=== PATIENT | male | born 1980 | race Caucasian/White ===

== ENCOUNTER 2016-09-09 17:48 | Emergency (ER) | payer SELFPAY ==
[2016-09-09 18:27] LABS: ABSOLUTE NEUTROPHIL COUNT 4.1 K/mm3 (1.8-7.7); BASO % 0.4 % (0.2-1.0); EOS # 0.2 (0.0-0.5); EOS % 2.2 % (0.9-2.9); HEMATOCRIT 38.1 % (32.0-52.0); HEMOGLOBIN 13.3 gm/l (14.0-18.0); IMM NEUT% 0.3 % (0-1); LYMPH # 2.5 (1.0-4.8); LYMPH % 35.1 % (15-45); MEAN CELL VOLUME 85.4 fl (80.0-94.0); MEAN CORPUSCULAR HEMOGLOBIN 29.8 pg (27.0-31.0); MEAN CORPUSCULAR HGB CONC 34.9 g/dl (33.0-37.0); MEAN PLATELET VOLUME 8.9 fl (7.4-10.4); MONO # 0.3 (0.0-0.8); MONO % 4.6 % (4-12); NEUT % 57.4 % (43-75); PLATELET COUNT 347 K/mm3 (130-400); RED CELL DISTRIBUTION WIDTH 11.2 % (11.5-14.5)
[2016-09-09] MEDS ORDERED: ONDANSETRON 4 MG/2ML 2 ML VIAL ONE (18:37)
[2016-09-09 18:59] LABS: SPECIFIC GRAVITY 1.025 (1.001-1.030); URINE APPEARANCE CLEAR; URINE BILIRUBIN NEGATIVE (NEGATIVE); URINE BLOOD 1+ (NEGATIVE); URINE COLOR YELLOW; URINE GLUCOSE (UA) NEGATIVE (NEGATIVE); URINE LEUKOCYTE ESTERASE NEGATIVE (NEGATIVE); URINE NITRITE NEGATIVE (NEGATIVE); URINE PROTEIN NEGATIVE (NEGATIVE); URINE UROBILINOGEN NORMAL (0-1 mg/dl)
[2016-09-09 19:04] LABS: URINE WBC 0-1 /hpf
[2016-09-09 19:05] LABS: ALB/GLOB RATIO 1.3 (>1.0); ALBUMIN 3.4 gm/dL (3.5-5.7); CALCIUM 8.4 mg/dL (8.6-10.3)
[2016-09-09 19:05] LABS: URINE BACTERIA RARE; URINE EPITHELIAL CELLS 0-1 /hpf
[2016-09-09 19:13] LABS: AMPHETAMINES/METHAMPHETAMINES POSITIVE (NEGATIVE); COCAINE NEGATIVE (NEGATIVE); MARIJUANA NEGATIVE (NEGATIVE); METHADONE NEGATIVE (NEGATIVE); OPIATES POSITIVE (NEGATIVE); TRICYCLIC ANTIDEPRESSANTS NEGATIVE (NEGATIVE)
== END 2016-09-09 19:22 | disposition home or self-care (01) ==
LOC: ED 17:48
DX: R10.13 Epigastric pain (principal); R11.10 Vomiting, unspecified; R19.7 Diarrhea, unspecified; F17.210 Nicotine dependence, cigarettes, uncomplicated
CPT/HCPCS: 83690; 85025; 80305; 80053; 81001; 99283 ×2; 96374; J2405